=== PATIENT | female | born 1965 | race Caucasian/White ===

== ENCOUNTER 2017-07-06 12:06 | Outpatient (CLI) | payer BC | END 2017-07-06 12:07 | disposition home or self-care (01) | LOC: BICMAMMO 12:06 | PROVIDERS: ATTEND Obstetrics & Gynecology | DX: Z12.31 Encounter for screening mammogram for malignant neoplasm of breast (principal) | CPT/HCPCS: 77063; 77067 ==

== ENCOUNTER 2018-07-13 16:04 | Outpatient (CLI) | payer BC | END 2018-07-13 16:05 | disposition home or self-care (01) | LOC: BICMAMMO 16:04 | PROVIDERS: ATTEND Obstetrics & Gynecology | DX: Z12.31 Encounter for screening mammogram for malignant neoplasm of breast (principal) | CPT/HCPCS: 77063; 77067 ==

== ENCOUNTER 2020-03-06 15:16 | Outpatient (CLI) | payer BC ==
--- NOTE | 2020-03-06 17:55 | MRI ---
MRI OF THE LEFT KNEE WITHOUT CONTRAST: 03/06/20 HISTORY: Patellofemoral disorder. COMPARISON: A knee radiograph 02/21/20. FINDINGS: MEDIAL MENISCUS: Mild linear intrameniscal degeneration of the body. No displaced tear. LATERAL MENISCUS: Free edge fraying and volume loss, very mild at the lateral meniscal body. No displaced tear. ACL and PCL are intact as well as the MCL and LCL. 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 Lateral patellar subluxation and elongation of the lateral patellar facet. Normal tibial tuberosity/trochlear groove distance. Quadriceps tendon and patellar tendon are intact. CARTILAGE: Patellofemoral compartment: Innumerous 75% chondral fissures at the patellar apex and left patellar facet. Medial compartment: Low grade flattening, grade II chondromalacia. Lateral compartment: No full thickness defect. 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 MUSCLES: Muscle signal and bulk is normal. SOFT TISSUES: Small volume joint effusion. No significant popliteal cyst. BONES: Some small osteophyte formation of the medial compartment. IMPRESSION: 1. 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 2. A few foci of grade III lateral patellar facet and patellar apex chondromalacia. 3. Mild free edge fraying with low grade volume loss lateral meniscal body without displaced tea r. 4. A few foci of grade II chondromalacia with fissures of the posterior red bone surface of the lateral tibial plateau. No full thickness defect. POS: HOME
== END 2020-03-06 15:17 | disposition home or self-care (01) ==
LOC: BICMRI 15:16
PROVIDERS: ATTEND Orthopaedic Surgery
DX: M22.2X2 Patellofemoral disorders, left knee (principal); S83.012A Lateral subluxation of left patella, initial encounter

== ENCOUNTER 2020-12-06 11:30 | Outpatient (CLI) | payer BC ==
[~2020-12-06 11:30] MED LIST: Iopamidol 370 76% 100 ML VIAL ONE
== END 2020-12-06 11:31 | disposition home or self-care (01) ==
LOC: CT 11:30
PROVIDERS: ATTEND Internal Medicine
DX: R10.9 Unspecified abdominal pain (principal); R31.29 Other microscopic hematuria; D17.71 Benign lipomatous neoplasm of kidney
CPT/HCPCS: 74178; Q9967

== ENCOUNTER 2021-02-10 08:55 | Outpatient (CLI) | payer BC | END 2021-02-10 08:56 | disposition home or self-care (01) | LOC: BICRAD 08:55 | PROVIDERS: ATTEND Internal Medicine | DX: M54.5 Low back pain (principal); M47.816 Spondylosis without myelopathy or radiculopathy, lumbar region | CPT/HCPCS: 72100 ==

== ENCOUNTER 2025-01-23 15:34 | Outpatient (CLI) | payer BC | END 2025-01-23 15:35 | disposition home or self-care (01) | LOC: BICMAMMO 15:34 | PROVIDERS: ATTEND Internal Medicine | DX: Z12.31 Encounter for screening mammogram for malignant neoplasm of breast (principal) | CPT/HCPCS: 77063; 77067 ==